=== PATIENT | female | born 1965 | race Caucasian/White ===

== ENCOUNTER 2019-03-25 03:53 | Inpatient (IN) | payer BC ==
[~2019-03-25] VITALS: Ht 181.6 cm; Wt 124.3 kg
[2019-03-25] VITALS (17 sets, daily range): BP systolic 117–162; BP diastolic 69–96
[~2019-03-25 03:53] MED LIST: ACET500T68 PO; FEXO1TAB63 PO; RANI-54 PO
[2019-03-25] MEDS ORDERED: ROPIVACAINE 0.2% 20 ML VIAL ONE (08:13)
[2019-03-25] MEDS: NORMOSOL R SOLN(*) 1000 ML BAG 1,000 ML IV PRN ×2 (10:05→15:39)
[2019-03-25] MEDS ORDERED: ONDANSETRON 4 MG/2 ML VIAL ONE (10:20)
[2019-03-25] MEDS ORDERED: DEXAMETHASONE SOD 4 MG/ML VIAL ONE (10:20)
[2019-03-25] MEDS ORDERED: PROPOFOL EMUL(*) 10MG/ML 20 ML 20 ML ONE (10:20)
[2019-03-25] MEDS ORDERED: LIDOCAINE MPF 1% 5 ML VIAL ONE (10:20)
[2019-03-25] MEDS ORDERED: METOCLOPRAMIDE 10 MG/2 ML SDV ONE (10:20)
[2019-03-25] MEDS ORDERED: KETAMINE HCL 200 MG/20 ML MDV ONE (10:31)
[2019-03-25] MEDS ORDERED: MIDAZOLAM 2 MG/2 ML VIAL IVP PRN (11:15)
[2019-03-25] MEDS ORDERED: ACETAMINOPHEN 500 MG TAB PO ONE (11:15)
[2019-03-25] MEDS ORDERED: TRANEXAMIC AC 1000 MG/10ML SDV 1,000 MG in DEXTROSE 5% 50 ML BAG 50 ML IV ONE (11:15)
[2019-03-25] MEDS ORDERED: ceFAZolin(*) 2GM/D5W 50ML 50 ML IVPB ONE (11:15)
[2019-03-25] MEDS ORDERED: LIDOCAINE/SOD BICARB 8.4% SYR ID ONE (11:15)
[2019-03-25] MEDS ORDERED: ROPIVACAINE 0.2% 400 MG/200ML 250 ML CONINFUS ONE (11:15)
[2019-03-25] MEDS ORDERED: CELECOXIB 200 MG CAP PO ONE (11:15)
[2019-03-25] MEDS ORDERED: ROPIVACAINE/EPI/CLONIDINE/KET 50 ML SYRINGE INJ ONE (11:15)
[2019-03-25] MEDS ORDERED: PREGABALIN 150 MG CAPSULE PO ONE (11:15)
[2019-03-25] MEDS ORDERED: fentaNYL CITR 250 MCG/5 ML AMP ONE (11:16)
[2019-03-25 11:21] LABS: INR 0.99
[2019-03-25] MEDS ORDERED: fentaNYL CITR 100 MCG/2 ML AMP ONE ×2 (14:30→15:18)
[2019-03-25] MEDS ORDERED: MORPHINE 4 MG/ML SDV IVP PRN ×2 (15:45→16:45)
[2019-03-25] MEDS ORDERED: ONDANSETRON 4 MG/2 ML VIAL IVP PRN (15:45)
[2019-03-25] MEDS ORDERED: FLUSH 10 ML SYR IVP PRN (15:45)
[2019-03-25] MEDS ORDERED: PROMETHAZINE 25 MG/ML 1 ML AMP IVP PRN (15:45)
[2019-03-25] MEDS ORDERED: BISACODYL 10 MG SUPP PR PRN (15:45)
[2019-03-25] MEDS ORDERED: ZOLPIDEM TARTRATE 5 MG TAB PO PRN (15:45)
[2019-03-25] MEDS ORDERED: MAGNESIUM HYDROXIDE* 30ML UDCP PO PRN (15:45)
[2019-03-25] MEDS ORDERED: NORMOSOL R SOLN(*) 1000 ML BAG 1,000 ML IV PRN (15:45)
--- NOTE | 2019-03-25 16:18 | RADIOLOGY IMAGING REPORT ---
FACILITY: [facility] PATIENT NAME: Gianna Romero : 1965 MR: [id number] V: [id number] EXAM DATE: ORDERING PHYSICIAN: MICHA IRAHETA TECHNOLOGIST: Location: [facility] Patient: Gianna Romero : 1965 Visit/Account:[id number] Date of Sevice: 03/25/2019 Exam type: KNEE LIMITED RIGHT History: Post op TRKA Comparison: None. Findings: Two views the right knee demonstrate a right knee arthroplasty in good anatomic alignment. Soft tiss ue gas projects over the anterior aspect of this postoperative knee IMPRESSION: 1. As above Report Dictated By: Candie Segura MD at 03/25/2019 4:03 PM Report E-Signed By: Candie Segura MD at 03/25/2019 4:12 PM WSN:[email or web address]
[2019-03-25] MEDS: ACETAMINOPHEN 500 MG TAB PO SCH (16:44)
[2019-03-25] MEDS: traMADol 50 MG TAB PO PRN (16:44)
[2019-03-25] MEDS ORDERED: FEXO-67 PO (17:01)
--- NOTE | 2019-03-25 17:07 | Hospitalist Progress Note ---
Subjective Progress Notes Subjective No cp/sob. 1900cc of crystalloid, TXA, dexamethasone, and ketamine given intra- op. Physical Exam Vital Signs Date Time Temp Pulse Resp B/P (MAP) Pulse Ox O2 Delivery O2 Flow Rate FiO2 03/25/19 16:20 60 20 94 03/25/19 10:40 99.0 162/96 (118) Room Air General Appearance: Alert, Awake, No Acute Distress Cardiovascular: Regular Rate and Rhythm Respiratory: Clear to Auscultation Extremities: No Edema Assessment and Plan Problems: (1) Status post knee replacement Status: Acute Assessment & Plan: No CV/pulmonary issues. She denies a h/o DVT/PE. She will be on ASA 325mg a day for 30 days after surgery for blood clot prevention. (2) PUD (peptic ulcer disease) Status: Chronic Assessment & Plan: She has a h/o a gastric ulcer. Because she will be on ASA, will increase her chronic ranitidine from daily to bid while on the ASA. Problem Qualifiers (1) Status post knee replacement: Laterality: right Qualified Codes: Z96.651 - Presence of right artificial knee joint FARHAD ROCK MD Mar 25, 2019 17:07
[2019-03-25] MEDS: IBUPROFEN 200 MG TAB PO SCH (18:12)
[2019-03-25] MEDS: ceFAZolin(*) 2GM/D5W 50ML 50 ML IVPB SCH (20:58)
[2019-03-25] MEDS: RANITIDINE HCL 150 MG TAB PO SCH (21:01)
[2019-03-25] MEDS: FEXOFENADINE HCL 60 MG TAB PO SCH (21:01)
[2019-03-25] MEDS ORDERED: NS(*) 0.9% 250 ML BAG 250 ML ONE (21:03)
[2019-03-25] MEDS: oxyCODONE HCL 5 MG CAP PO PRN (21:50)
[2019-03-26] VITALS (11 sets, daily range): BP systolic 104–147; BP diastolic 63–70; Ht 181.6 cm; Wt 124.3 kg
[2019-03-26] MEDS: IBUPROFEN 200 MG TAB PO SCH ×4 (00:53→17:32)
[2019-03-26] MEDS: ACETAMINOPHEN 500 MG TAB PO SCH ×3 (00:53→17:33)
--- NOTE | 2019-03-26 04:09 | OPERATIVE REPORT 1 ---
EVENT DATE: March 25, 2019 SURGEON: Wes Albarran MD ANESTHESIOLOGIST: Aric Fisher MD ANESTHESIA: Right adductor canal block followed by general. ONSHORE DIVER: Pb Mello PA-C PREOPERATIVE DIAGNOSIS Right knee degenerative joint disease, valgus alignment. POSTOPERATIVE DIAGNOSIS Right knee degenerative joint disease, valgus alignment. PROCEDURE PERFORMED Right total knee arthroplasty. IMPLANTS USED MicroPort medial-pivot CS system with a 5 femur, 5 tibia, 10 mm CS insert, and 8 x 35 symmetric patella. Femur cut 6 degrees valgus,10 mm. We also utilized two packages of [employer] Forest Blue cement and ZipLine wound closure system. SPECIMENS None. COMPLICATIONS None. ESTIMATED BLOOD LOSS Less than 200 mL. DESCRIPTION OF PROCEDURE Patient was brought to the OR after receiving appropriate preoperative antibiotic, and Dr. Fisher performed right adductor canal block followed by general. A right thigh tourniquet was placed but not utilized. Right lower extremity prepped and draped in the usual sterile fashion. Midline incision followed by medial parapatellar arthrotomy. We dissected subperiosteally along the medial tibial plateau to the level of the semimembranosus insertion. There was significant fat pad scarring, and this led into scarring of the lateral gutter. Fat pad was excised, patella released and everted. Knee was brought up into flexion. ACL and PCL were released subperiosteally by Bovie. The remaining articular cartilage was removed from the distal femoral condyles by sagittal saw. Step-cut drill was utilized to broach the femoral canal, and then we placed our intramedullary distal femoral guide, set the block up at 6 degrees valgus, 10 mm, and made our cut. A 3-degree external rotation guide and sizer were then placed, referencing off the anterior flange, epicondyles and posterior condyles. Femur was sized to a #5. A 4-in-1 cutting guide was positioned, followed by Z retractors to protect the soft tissue. We made our four cuts. Tibia was then brought anteriorly onto the femur with appropriate retractors. Step-cut drill was utilized to broach the tibial canal, where then we placed our intramedullary tibial guide and referenced 2 mm off the eburnated lateral tibial plateau. We set up our cut and referenced for rotation, pinned the block into place, and made our tibia cut. This was sized to a #5. We then removed the stump of the ACL and PCL by Bovdionna, as well as the meniscus. We released the IT band, and eventually we also released the popliteal tendon. We placed our trial tibial baseplate, referencing the previous rotation. We placed a 10 mm insert, then our femur. We were able to achieve full extension, flexion limited only by body habitus at about 135 degrees, and at 90 degrees with a good endpoint and anterior drawer. Knee was placed in full extension. Patella was sized to 23 mm. We utilized an 8 mm cutting guide to make our patella cut, and we placed our peg hole guide inferiorly and medially and drilled for our peg holes. This accepted our 8 x 35 trial. We then flexed the knee once again, drilled for our peg holes in the femur, placed these, cut for a trochlear chip and placed this. Again, we had 0 to 135 degrees of range of motion, stability to varus and valgus stress. Patella tracked well, and good endpoint and anterior drawer. The patella, femur, and tibial insert were removed. Appropriate retractors were placed to expose the tibial baseplate, and we set up our keel tower, which was then cut, reamed and punched. Instrumentation was removed. Bone plug was placed in the distal femur. We brought the knee out in full extension and copiously irrigated by pulsed lavage while we mixed two packages of [employer] Forest Blue cement. We then injected 10 mL of our cocktail in the posterior capsule. We then brought up the knee in appropriate position, again irrigated. Starting at the tibia, this was cemented in place, followed by our 10 mm insert and our #5 femur. Excess cement was removed. The knee was brought out in full extension with axial compression while we cemented the patella. We then injected the remaining cocktail into the distal quad mechanism, followed by irrigation. Cement had cured at approximately 12 minutes. Again, the aforementioned range of motion and stability were noted. We irrigated once again, placed the knee at 30 degrees of flexion, closed the arthrotomy with #2 Vicryl in [id number] suture fashion followed by 2-0 Vicryl for subcutaneous tissues. Then, with the knee bent at 45 degrees, we cleaned the wounds and placed our ZipLine wound closure system. Compressive dressing was applied. Patient was extubated and taken to Recovery in stable condition. Hospitalist team will be consulted for medical management and anticoagulation, PT for rehab. FOX
[2019-03-26] MEDS: ceFAZolin(*) 2GM/D5W 50ML 50 ML IVPB SCH ×2 (04:34→12:12)
[2019-03-26] MEDS: oxyCODONE HCL 5 MG CAP PO PRN ×3 (06:14→20:30)
[2019-03-26] MEDS: ASPIRIN 325 MG TAB PO SCH (08:40)
[2019-03-26] MEDS: RANITIDINE HCL 150 MG TAB PO SCH ×2 (08:43→20:31)
--- NOTE | 2019-03-26 11:47 | Hospitalist Progress Note ---
Subjective Progress Notes Subjective She was admitted s/p knee replacement. She had no acute events overnight. Patient Complains of: Cardiovascular: No: Chest Pain Respiratory: No: Shortness of Breath Physical Exam Vital Signs Date Time Temp Pulse Resp B/P (MAP) Pulse Ox O2 Delivery O2 Flow Rate FiO2 03/26/19 09:41 96 Nasal Cannula 2.0 03/26/19 07:21 98.3 57 12 115/63 (80) Intake and Output 03/26/19 01:02 Intake Total 3550 ml Balance 3550 ml Intake Oral 450 ml IV Total 3100 ml # Voids 3 General Appearance: Alert, Awake, No Acute Distress, Afebrile Neuro: No Gross deficits Cardiovascular: Regular Rate and Rhythm Respiratory: No Respiratory Distress, Clear to Auscultation GI: Soft and Non-Tender Psych: Alert & Oriented X3, Appropriate Mood & Affect Assessment and Plan Problems: (1) Status post knee replacement Status: Acute Assessment & Plan: No CV/pulmonary issues. She denies a h/o DVT/PE. She will be on ASA 325mg a day for 30 days after surgery for blood clot prevention. (2) PUD (peptic ulcer disease) Status: Chronic Assessment & Plan: She has a h/o a gastric ulcer. Because she will be on ASA, will increase her chronic ranitidine from daily to bid while on the ASA. Exam Sepsis Risk: No Definite Risk Problem Qualifiers (1) Status post knee replacement: Laterality: right Qualified Codes: Z96.651 - Presence of right artificial knee joint [facility] Mar 26, 2019 11:47
--- NOTE | 2019-03-26 14:31 | NUR ---
Physical Therapy Impression PT eval complete. Pt demonstrating good tolerance to ambulation and able to walk into hallway. Pt performed supine to sit transfer with SBA. Pt performed sit<>stand transfers off varying surfaces all with CGAx1 and use of RW. Pt ambulated 50 ft with CGAx1 and use of RW. Pt took 1 sitting rest reporting some lightheadedness, Pt appearing to be asymptomatic. After rest, no more complaints. Pt left sitting in reclining chair with all needs met and call light in reach. Pt would benefit from further skilled PT care to ensure safe ambulation and stair negotiation. Rec pending progress. Physical Therapy Goals 1. Bethany bed mobility 2. Bethany sit to stand transfers 3. Bethany ability to ambulate 150 ft with least restrictive device 4. Bethany ability to ascend/descend 3 stairs 5. Indpendent use of CPM machine. Patient's Goals
--- NOTE | 2019-03-26 14:32 | NUR ---
This Physical Therapist or Syrup Maker Cook was present for the entire physical therapy session directing the services, making the skilled judgement, and was not engaged in treating another patient or doing another task at the same time as the treatment session. Addendum: 03/26/19 at 1432 by CARSON REYES PT Amended: Links added.
--- NOTE | 2019-03-26 16:06 | NUR ---
This Physical Therapist or Milk Wagon Driver was present for the entire physical therapy session directing the services, making the skilled judgement, and was not engaged in treating another patient or doing another task at the same time as the treatment session. Addendum: 03/26/19 at 1607 by CARSON REYES PT Amended: Links added.
--- NOTE | 2019-03-26 16:06 | NUR ---
Physical Therapy Impression Pt demonstrating improvements in endurance/tolerance of ambulation. Therex performed supine in bed: ankle pumps,quad sets, glut sets, and heel slides. Bed mobility performed with SBA, leg tick sewer used for sit to supine transfer. Sit<>supine transfer performed with CGAx1 and use of RW. Pt ambulated 140 ft with CGAx1 and RW. SpO2>90% on room air, so ambulation performed without supplemental O2. Pt with no additional complaints of pain or lightheadedness during ambulation. No breaks required. Following session, Pt left on CPM machine from 0-35 degrees. Pt instructed on how to increase degrees of flexion. Pt left on CPM with all needs met and call light in reach. Pt would benefit from further skilled PT care to educate on safe stair negotiation. Rec OP PT following discharge. Physical Therapy Goals 1. Bethany bed mobility 2. Bethany sit to stand transfers 3. Bethany ability to ambulate 150 ft with least restrictive device 4. Bethany ability to ascend/descend 3 stairs 5. Indpendent use of CPM machine. Patient's Goals
[2019-03-26] MEDS: FEXOFENADINE HCL 60 MG TAB PO SCH (20:30)
[2019-03-27] MEDS: IBUPROFEN 200 MG TAB PO SCH ×3 (00:30→11:20)
[2019-03-27] MEDS: ACETAMINOPHEN 500 MG TAB PO SCH ×2 (01:52→09:34)
[2019-03-27 01:55] VITALS: BP 132/76
[2019-03-27 06:17] VITALS: BP 124/59
[2019-03-27] MEDS: ASPIRIN 325 MG TAB PO SCH (09:34)
[2019-03-27] MEDS: RANITIDINE HCL 150 MG TAB PO SCH (09:34)
[2019-03-27] MEDS ORDERED: OXYC5CAP21 PO (09:36)
[2019-03-27] MEDS ORDERED: TRAM-420 PO (09:39)
[2019-03-27] MEDS ORDERED: ASPI-757 PO (10:21)
[2019-03-27] MEDS ORDERED: RANI-318 PO (10:21)
--- NOTE | 2019-03-27 10:22 | Hospitalist Progress Note ---
Subjective Progress Notes Subjective No cp/sob. No concerns from patient or staff. Physical Exam Vital Signs Date Time Temp Pulse Resp B/P (MAP) Pulse Ox O2 Delivery O2 Flow Rate FiO2 03/27/19 07:50 90 03/27/19 07:50 Room Air 03/27/19 06:17 98.3 69 16 124/59 (80) 1.0 Intake and Output 03/27/19 07:02 Intake Total 1790 ml Balance 1790 ml Intake Oral 1490 ml IV Total 300 ml # Voids 6 General Appearance: Alert, Awake, No Acute Distress Cardiovascular: Regular Rate and Rhythm Respiratory: Clear to Auscultation Extremities: No Edema Assessment and Plan Problems: (1) Status post knee replacement Status: Acute Assessment & Plan: No CV/pulmonary issues. She denies a h/o DVT/PE. She will be on ASA 325mg a day for 30 days after surgery for blood clot prevention. (2) PUD (peptic ulcer disease) Status: Chronic Assessment & Plan: She has a h/o a gastric ulcer. Because she will be on ASA, will increase her chronic ranitidine from daily to bid while on the ASA. Exam Sepsis Risk: No Definite Risk Problem Qualifiers (1) Status post knee replacement: Laterality: right Qualified Codes: Z96.651 - Presence of right artificial knee joint FARHAD ROCK MD Mar 27, 2019 10:22
[2019-03-27] MEDS: traMADol 50 MG TAB PO PRN (11:20)
--- NOTE | 2019-03-27 15:50 | NUR ---
Physical Therapy Impression Pt near all PT goals and safe to discharge home when medically appropriate. Pt demonstrating improved tolerance to mobility and able to perform stair training without significant difficulty. Pt performing sit to supine transfer with SBA and use of leg timber skidder. Sit<>stand transfer with SBA and use of RW. Pt ambulating 150 ft with RW and SBA. Pt with no complaints of lightheadedness or dizziness. Pt able to ascend/descend 1 stair with SBA, use of left railing/hand held assist, and verbal cues for foot sequencing. Pt demonstrating good tolerance to stair training. Rec OP PT following discharge. Physical Therapy Goals 1. Bethany bed mobility 2. Bethany sit to stand transfers 3. Bethany ability to ambulate 150 ft with least restrictive device 4. Bethany ability to ascend/descend 3 stairs 5. Indpendent use of CPM machine. Patient's Goals
--- NOTE | 2019-03-27 15:50 | NUR ---
This Physical Therapist or Cooky Packer was present for the entire physical therapy session directing the services, making the skilled judgement, and was not engaged in treating another patient or doing another task at the same time as the treatment session. Addendum: 03/27/19 at 1551 by CARSON REYES PT Amended: Links added.
== END 2019-03-27 11:40 | disposition home or self-care (01) | DRG 470 ==
LOC: OR 03:53 → MED 16:35 → OBSVTOIN 16:35 → INTOOBSV 16:35
PROVIDERS: ADMIT Orthopaedic Surgery; ATTEND Orthopaedic Surgery
PROC: 0SRC0J9 Replacement of Right Knee Joint with Synthetic Substitute, Cemented, Open Approach (ICD-10-PCS; principal; 2019-03-25 12:20)
DX: M17.11 Unilateral primary osteoarthritis, right knee (principal); G47.33 Obstructive sleep apnea (adult) (pediatric); K21.9 Gastro-esophageal reflux disease without esophagitis; M21.061 Valgus deformity, not elsewhere classified, right knee; K27.7 Chronic peptic ulcer, site unspecified, without hemorrhage or perforation; Z79.82 Long term (current) use of aspirin
CPT/HCPCS: 36415; 76942; 85610; 86850; 86900; 86901; 97161; C1713; C1776; J0690; J1100; J2001; J2250; J2405; J2704; J2765; J2795; J3010; J3490; J7050; J7060